=== PATIENT | female | born 1995 | race Caucasian/White ===

== ENCOUNTER → 2016-12-04 | Outpatient (CLI) | payer OTHER | LOC: MOB LAB 14:49 | PROVIDERS: ATTEND Obstetrics & Gynecology | DX: Z36 Encounter for antenatal screening of mother (principal); Z3A.35 35 weeks gestation of pregnancy | CPT/HCPCS: 87150 ==

== ENCOUNTER 2016-12-11 16:45 | Outpatient (CLI) | payer OTHER ==
[2016-12-11 18:01] VITALS: RESP 16; TEMP 98.4
[2016-12-11] MEDS ORDERED: NORMAL SALINE 10 ML SYRINGE FLUSH IVP PRN (19:00)
--- NOTE | 2016-12-11 19:52 | DI ---
HISTORY: Evaluate placenta. COMPARISON: None available. TECHNIQUE: Multiple grayscale and color Doppler sonographic images were obtained through the pelvis. FINDINGS: Examination demonstrates a single live intrauterine gestation in vertex presentation. Amniotic fluid level is normal. The placenta is posterior and grade 1 without visible defects. The cervix is long and closed measuring 3.0 cm in length. Detected Doppler heart tones measure 127 beats per minute. IMPRESSION: 1. A single live intrauterine gestation with a normal placenta. NOTE: The interpreting Radiologist was not present at the time of ultrasound interrogation.
[2016-12-11] MEDS ORDERED: RHO(D) IMMUNE GLOBULIN 1500 UNIT(300 mcg)SYRIN IM ONE (19:58)
== END 2016-12-11 19:55 | disposition home or self-care (01) ==
LOC: OBOP 16:45
PROVIDERS: ATTEND Obstetrics & Gynecology
DX: O36.0130 Maternal care for anti-D [Rh] antibodies, third trimester, not applicable or unspecified (principal); W01.0XXA Fall on same level from slipping, tripping and stumbling without subsequent striking against object, initial encounter; Z3A.36 36 weeks gestation of pregnancy
CPT/HCPCS: 59025; 76815; 81003; 86850; 86870; 86970; 96372; 99211; J2790

== ENCOUNTER 2016-12-25 18:16 | Inpatient (IN) | payer OTHER ==
[2016-12-25] MEDS ORDERED: CefOXitin Inj 2 GM in Sodium Chloride 0.9% 100 ML IV PRN (18:31)
[2016-12-25] MEDS ORDERED: Metoclopramide Inj 10 MG/2 ML VIAL IV PRN (18:31)
[2016-12-25] MEDS ORDERED: Lidocaine 1% 10 MG/ML - 20 ML VIAL SUBCUT PRN (18:31)
[2016-12-25] MEDS ORDERED: TERBUTALINE SULFATE 1 MG/1 ML SDV SUBCUT PRN (18:31)
[2016-12-25] MEDS ORDERED: BUTORPHANOL TARTRATE 2 MG/1 ML VIAL IVP PRN (18:31)
[2016-12-25] MEDS ORDERED: ONDANSETRON 4 MG/2 ML VIAL IVP PRN (18:31)
[2016-12-25] MEDS ORDERED: ePHEDrine Inj 5 MG in Normal Saline Flush 1 ML IVP PRN (18:31)
[2016-12-25] MEDS ORDERED: LIDOCAINE W/ SODIUM BICARB 0.5 ML SYR SUBD PRN (18:31)
[2016-12-25] MEDS ORDERED: Phenylephrine Inj 50 MCG in Normal Saline Flush 0.5 ML IVP PRN (18:31)
[2016-12-25] MEDS ORDERED: Nalbuphine Inj 20 MG/ML Ampule IVP PRN (18:31)
[2016-12-25] MEDS ORDERED: OXYTOCIN 10 UNIT/1 ML IM PRN (18:31)
[2016-12-25] MEDS ORDERED: Naloxone Inj 0.01 MG in Normal Saline Flush 1 ML IVP PRN (18:31)
[2016-12-25] MEDS ORDERED: diphenhydrAMINE 50 MG/1 ML VIAL IVP PRN (18:31)
[2016-12-25] MEDS ORDERED: Famotidine Inj 20 MG in Normal Saline Flush 10 ML IVP PRN ×4 (18:31)
[2016-12-25] MEDS ORDERED: METHYLERGONOVINE MALEATE 0.2 MG/1 ML VIAL IM PRN (18:31)
[2016-12-25] MEDS ORDERED: fentaNYL Inj 100 MCG/2 ML VIAL IV PRN (18:31)
[2016-12-25] MEDS ORDERED: Carboprost Inj 250 MCG/ML AMP IM PRN (18:31)
[2016-12-25] MEDS ORDERED: CITRIC ACID/SODIUM CITRATE 30 ML CUP PO PRN (18:31)
[2016-12-25] MEDS ORDERED: NALOXONE 0.4 MG/1 ML VIAL IVP PRN (18:31)
[2016-12-25] MEDS ORDERED: NORMAL SALINE 10 ML SYRINGE FLUSH IVP PRN (18:31)
[2016-12-25] MEDS ORDERED: CALCIUM CARBONATE 500 MG (TUMS) CHEWABLE TABLET PO PRN (18:31)
[2016-12-25] MEDS ORDERED: MISOPROSTOL 200 MCG TABLET RECTAL PRN (18:31)
[2016-12-25] MEDS ORDERED: Misoprostol Tab 100 MCG TAB VAGINAL PRN (18:34)
[2016-12-25] MEDS ORDERED: Oxytocin 20 Units + LR 1,000 ML IV SCH (18:45)
[2016-12-25] MEDS: Lactated Ringers-OB Dept 1,000 ML PRIMARY IV SCH (19:15)
--- NOTE | 2016-12-25 19:34 | OB.PROGRES ---
Interval History: The patient is a 21-year-old at 38-6/7 weeks who is being admitted for cervical ripening and then induction of labor with a history of a significant cervical laceration 2 after an outlet vacuum delivery last of an 8 lbs. 10 oz. child after a long second stage of labor. As the patient's delivered, the patient's cervix came down with the baby outside of the introitus. Although it was an outlet vacuum delivery, the vacuum itself was not adherent to the cervix but the baby's body drug the cervix down past the introitus and 2 lacerations occurred. With that history, the patient is being induced at 39 weeks. The patient did discuss the possibility of a primary low transverse section but the patient believes that this baby is slightly smaller than her last baby and she would like to try a vaginal delivery. Past medical history noncontributory except for low back pain for multiple years Past surgical history noncontributory The patient does not tolerate hydrocodone well. She is allergic to honeybees. No tobacco, alcohol or drugs. OB history is significant for an outlet vacuum delivery with a cervical laceration and a first-degree vaginal laceration with the baby being a male infant weighing 8 lbs. 10 oz. 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 Menarche age 10. No STI history. Objective - Cervical Exam Cervical Exam: Yesterday, cervix was 3/thick/balottable and cephalic [place]: Initially, contractions every 7 minutes but patient cannot palpate well Heart Rate Interpretation Category: Category I - Additional Details Additional Details: Lungs clear to auscultation Heart regular rate and rhythm Abdomen is soft and nontender without guarding or rebound By Jarvis's the baby was in the cephalic presentation Assessment and Plan - Assessment / Plan Additional Assessment/Plan Details: Assessment: IUP 38-6/7 weeks admitted for cervical ripening this evening and then induction of labor tomorrow. The patient has a history of cervical laceration 2 after her outlet vacuum delivery of an 8 lbs. 10 oz. child in 2013 with the cervix being drug down with the -not the outlet vacuum after a prolonged second stage of labor. The cervix actually descended to outside the patient's vaginal introitus with the delivery. The patient and I have discussed a primary section but the patient would like to try a vaginal delivery. The patient understands that there is a possibility of a significant cervical laceration that would require repair in the operating room or even possibly a hysterectomy. The patient believes that this baby currently in utero is smaller than her last baby and she is hoping that a vaginal delivery will work well. Plan: The patient's cervix will be checked tonight after the patient is admitted. The patient is just being admitted currently. The patient's contractions will be evaluated and if they are not more frequent than every 7 minutes, Cytotec 25 g will be placed vaginally. The patient will be observed closely. The patient is Rh- and did receive RhoGAM just a couple weeks ago when her dog knocked her down and the patient was zach at that time. The patient also received program at 28 weeks. red blood cells was negative at the time when the patient's dog knocked her down. One dose of RhoGam was administered at that time. Close observation for a prolonged second stage of labor
[2016-12-25 19:37] LABS: HEMATOCRIT 33.1 % (37.0-47.0); HEMOGLOBIN 11.2 g/dL (12.0-16.0); MEAN CORPUSCULAR HEMOGLOBIN 32.4 PG (27-31); MEAN CORPUSCULAR HGB CONC 33.8 g/dL (33-37); MEAN PLATELET VOLUME 9.8 FL (7.4-12.2); RDW COEFFICIENT OF VARIATION 12.8 % (11.5-14.5); RED BLOOD COUNT 3.46 10^6/uL (4.20-5.40); WHITE BLOOD COUNT 12.37 10^3/uL (4.8-10.8)
--- NOTE | 2016-12-25 19:55 | OB.PROGRES ---
Objective - Cervical Exam Cervical Exam: /ballotable [place]: After membrane sweeping, contractions every 3-5 minutes Assessment and Plan - Assessment / Plan Additional Assessment/Plan Details: Assessment/plan: Patient's cervix is changed from 3 cm yesterday to 5-6 cm today. This patient's cervix is still 50% effaced and the baby is ballotable. Currently, the plan is for the patient to contract by herself without Pitocin augmentation but Pitocin augmentation may be started if the contractions space out. Low-dose Pitocin overnight at 1-2 milliunits.
[2016-12-25] MEDS ORDERED: Zolpidem Tab 5 MG TAB PO PRN (21:00)
[2016-12-25 21:54] LABS: CANNABINOID SCREEN,URINE NEGATIVE (NEG); COCAINE SCREEN NEGATIVE (NEG); METHAMPHETAMINES SCREEN,URINE NEGATIVE (NEG); TRICYCLIC ANTIDEPRESSANT,URINE NEGATIVE (NEG); URINE SAMPLE TYPE VOIDED SPECIMEN; URINE SPECIFIC GRAVITY - MAN 1.019
[2016-12-26] MEDS: Lactated Ringers-OB Dept 1,000 ML PRIMARY IV SCH ×2 (03:11→11:08)
[2016-12-26] MEDS ORDERED: Oxytocin 20 Units + LR 1,000 ML IV SCH ×2 (06:00→15:04)
--- NOTE | 2016-12-26 08:07 | OB.PROGRES ---
Interval History: The patient rested overnight and slept some. The patient is comfortable. Minimal amount of bloody show this morning. Objective - Cervical Exam Cervical Exam: 650/-2 cephalic but ballotable. Cervix is slightly posterior [place]: Contractions every 2-5 minutes Heart Rate Interpretation Category: Category I - Labs CBC and BMP: 12/25/16 19:20 Labs - Last 24 Hours: Laboratory Results 12/25/16 12/25/16 Range/Units 19:00 19:20 WBC 12.37 H (4.8-10.8) 10^3/uL RBC 3.46 L (4.20-5.40) 10^6/uL Hgb 11.2 L (12.0-16.0) g/dL Hct 33.1 L (37.0-47.0) % MCV 95.7 (81-99) FL MCH 32.4 H (27-31) PG MCHC 33.8 (33-37) g/dL RDW Std Deviation 42.6 (39-50) fL RDW Coeff of Vlad 12.8 (11.5-14.5) % Plt Count 228 (140-350) 10*3/uL MPV 9.8 (7.4-12.2) FL Ur Collection Type Voided specimen U Specif Grav (Refrac) 1.019 Urine Opiates Screen Negative (NEG) Ur Buprenorphine Negative (NEG) Ur Oxycodone Screen Negative (NEG) Urine Methadone Screen Negative (NEG) Ur Propoxyphene Screen Negative (NEG) Ur Barbiturates Screen Negative (NEG) U Tricyclic Antidepress Negative (NEG) Phencyclidine Screen Negative (NEG) Amphetamines Screen Negative (NEG) U Methamphetamines Scrn Negative (NEG) U Benzodiazepines Scrn Negative (NEG) Urine Cocaine Screen Negative (NEG) U Cannabinoids Screen Negative (NEG) Blood Type A NEGATIVE Antibody Screen Positive Antibody Identification Anti-D - Vital Signs Last Taken Vital Signs: Vital Signs - Last Taken Temperature 98.1 F 12/26/16 06:45 Pulse Rate 101 H 12/26/16 07:00 Respiratory Rate 16 12/26/16 07:00 Blood Pressure 98/64 12/26/16 06:45 Pulse Ox 98 12/26/16 07:00 - Additional Details Additional Details: Pitocin at 3 milliunits currently Assessment and Plan - Assessment / Plan Additional Assessment/Plan Details: Assessment: IUP 39 weeks with a history of an outlet vacuum delivery with cervical laceration 2 as well as a first-degree laceration and labial lacerations. The patient is Rh- and has received RhoGAM this The patient is very petite but has a proven pelvis to 8 lbs. 10 oz. although the cervix descended with the delivery of the baby last time and there was a prolonged second stage of labor. Currently, the baby's head is ballotable and not in the patient's pelvis. Last night the patient was admitted for cervical ripening but was found to be 5 cm dilated. The membranes were swept gently and the patient was zach regularly and I did not administer Pitocin or Cytotec secondary to the head being ballotable in the hopes that the patient's contractions would bring down the baby's head. Pitocin was started this morning when I called in 0535 hrs. and requested Pitocin be started. Plan: I would like to AROM the patient. I have talked to the operating room staff and spoken with the patient and the labor and delivery nurses about the possible risk of cord prolapse with AROM. Therefore I would like the operating room staff and anesthesia readily available when I AROM the patient. The patient has expressed understanding and currently has informed me that it is okay for AROM. This will occur when everyone is ready. We have also discussed that sometimes the baby's head does not descend into the pelvis secondary to the size of the baby or secondary to a tethered nuchal cord. Again, the patient has opted for a trial of labor versus a section with a history of the descent of the patient's cervix outside the patient's introitus and a history of cervical lacerations. Hopefully, the baby's head will descend into the pelvis once AROM has occurred.
--- NOTE | 2016-12-26 09:43 | OB.PROGRES ---
Interval History: Recent significant other is here and she is ready for AROM. Patient is comfortable currently. Objective - Cervical Exam Cervical Exam: /-3 with AROM-clear fluid-no evidence of prolapsed cord with AROM. Patient and baby tolerated AROM well. Pitocin was decreased from 5 to 3 milliunits after AROM. [place]: Every 3 minutes, Heart Rate Interpretation Category: Category I - Labs CBC and BMP: 12/25/16 19:20 Labs - Last 24 Hours: Laboratory Results 12/25/16 12/25/16 Range/Units 19:00 19:20 WBC 12.37 H (4.8-10.8) 10^3/uL RBC 3.46 L (4.20-5.40) 10^6/uL Hgb 11.2 L (12.0-16.0) g/dL Hct 33.1 L (37.0-47.0) % MCV 95.7 (81-99) FL MCH 32.4 H (27-31) PG MCHC 33.8 (33-37) g/dL RDW Std Deviation 42.6 (39-50) fL RDW Coeff of Vlad 12.8 (11.5-14.5) % Plt Count 228 (140-350) 10*3/uL MPV 9.8 (7.4-12.2) FL Ur Collection Type Voided specimen U Specif Grav (Refrac) 1.019 Urine Opiates Screen Negative (NEG) Ur Buprenorphine Negative (NEG) Ur Oxycodone Screen Negative (NEG) Urine Methadone Screen Negative (NEG) Ur Propoxyphene Screen Negative (NEG) Ur Barbiturates Screen Negative (NEG) U Tricyclic Antidepress Negative (NEG) Phencyclidine Screen Negative (NEG) Amphetamines Screen Negative (NEG) U Methamphetamines Scrn Negative (NEG) U Benzodiazepines Scrn Negative (NEG) Urine Cocaine Screen Negative (NEG) U Cannabinoids Screen Negative (NEG) Blood Type A NEGATIVE Antibody Screen Positive Antibody Identification Anti-D - Vital Signs Last Taken Vital Signs: Vital Signs - Last Taken Temperature 98.2 F 12/26/16 08:30 Pulse Rate 85 12/26/16 08:45 Respiratory Rate 18 12/26/16 08:45 Blood Pressure 107/72 12/26/16 08:45 Pulse Ox 100 12/26/16 08:45 Assessment and Plan - Assessment / Plan Additional Assessment/Plan Details: Assessment: IUP 39 weeks with AROM with clear fluid The patient and the baby tolerated well. Plan: Close observation Continue Pitocin
[2016-12-26] MEDS ORDERED: LIDOCAINE MPF 2% - 5 ML (20 MG/1 ML) ONE ×2 (11:10→13:46)
[2016-12-26] MEDS ORDERED: PHENYLEPHRINE 10,000 MCG/1 ML VIAL ONE (11:17)
--- NOTE | 2016-12-26 11:52 | CRNA.PROCE ---
Central Neuraxis Block [facility] - - Safety Measures: Site Verified - - Type of Block: Epidural (Requested epidural for labor. 8 cm. Ruptured membranes. On pitocin. FHT reassuring per OB RN's. Lactated Ringers Bolus running. Platelets reported at) Reason for Block: Analgesia Moniters Used During Block: SPO2, NIBP Skin Prep Used: Betadine (Times 3) Draped: Yes Skin Infiltration - Enter Amount Used in Comment Field: 1% Xylocaine (mL): Yes ( 1) Spinal Needle Used: 18 Hustead 80 mm (ROBBIE with saline. Epidural space times 1. Test dose of 4 ml 1.5% Lido with epi 1:200k--Negatve for SAB/IV.) Local Anesthetic - Enter Amount Used in Comment Field: 1.5 % Xylocaine with Epinephrine 1:200,000 (mL): Yes (4 ml) Number of Centimeters Catheter Threaded: 3.5 Bioclusive Dressing Applied: Yes (With skin prep underneath.)
[2016-12-26] MEDS ORDERED: Naloxone Inj 0.01 MG in Normal Saline Flush 1 ML IVP PRN (11:58)
[2016-12-26] MEDS ORDERED: Nalbuphine Inj 20 MG/ML Ampule IVP PRN ×2 (11:58→15:04)
[2016-12-26] MEDS ORDERED: Phenylephrine Inj 50 MCG in Normal Saline Flush 0.5 ML IVP PRN (11:58)
[2016-12-26] MEDS ORDERED: diphenhydrAMINE 50 MG/1 ML VIAL IVP PRN ×2 (11:58→15:04)
[2016-12-26] MEDS ORDERED: NALOXONE 0.4 MG/1 ML VIAL IVP PRN (11:58)
[2016-12-26] MEDS ORDERED: BUTORPHANOL TARTRATE 2 MG/1 ML VIAL IVP PRN (11:58)
[2016-12-26] MEDS ORDERED: ePHEDrine Inj 5 MG in Normal Saline Flush 1 ML IVP PRN (11:58)
--- NOTE | 2016-12-26 12:04 | CRNA.PROGR ---
Anesthesia Note Anesthesia Progress Note: Placed epidural. Test dose of 4.0 ml of 1.5% lido with epi 1:200k at 1124. Added 5 ml of 2% MPF lido at 1140. Now reported to be "rim/lip" only. [address] on infusion. Laboratory Results 12/25/16 12/25/16 Range/Units 19:00 19:20 WBC 12.37 H (4.8-10.8) 10^3/uL RBC 3.46 L (4.20-5.40) 10^6/uL Hgb 11.2 L (12.0-16.0) g/dL Hct 33.1 L (37.0-47.0) % MCV 95.7 (81-99) FL MCH 32.4 H (27-31) PG MCHC 33.8 (33-37) g/dL RDW Std Deviation 42.6 (39-50) fL RDW Coeff of Vlad 12.8 (11.5-14.5) % Plt Count 228 (140-350) 10*3/uL MPV 9.8 (7.4-12.2) FL Ur Collection Type Voided specimen U Specif Grav (Refrac) 1.019 Urine Opiates Screen Negative (NEG) Ur Buprenorphine Negative (NEG) Ur Oxycodone Screen Negative (NEG) Urine Methadone Screen Negative (NEG) Ur Propoxyphene Screen Negative (NEG) Ur Barbiturates Screen Negative (NEG) U Tricyclic Antidepress Negative (NEG) Phencyclidine Screen Negative (NEG) Amphetamines Screen Negative (NEG) U Methamphetamines Scrn Negative (NEG) U Benzodiazepines Scrn Negative (NEG) Urine Cocaine Screen Negative (NEG) U Cannabinoids Screen Negative (NEG) Blood Type A NEGATIVE Antibody Screen Positive Antibody Identification Anti-D 5 ml of 2% Lido MPF vis epidural at 1235. Baby delivered at 1312. Apgars 9 and 10 apgars per OB BEENA Matthew. Yumiko Perkins MS, MOP MAKER
--- NOTE | 2016-12-26 12:18 | OB.PROGRES ---
Interval History: The patient has received an epidural and is much more comfortable now. Objective - Cervical Exam Cervical Exam: Per the nurse's exam: 9/C/0 cephalic [place]: Pitocin on 2 milliunits currently. Contractions every 3 minutes or so Heart Rate Interpretation Category: Category II (Variable decelerations or early decelerations) - Labs CBC and BMP: 12/25/16 19:20 Labs - Last 24 Hours: Laboratory Results 12/25/16 12/25/16 Range/Units 19:00 19:20 WBC 12.37 H (4.8-10.8) 10^3/uL RBC 3.46 L (4.20-5.40) 10^6/uL Hgb 11.2 L (12.0-16.0) g/dL Hct 33.1 L (37.0-47.0) % MCV 95.7 (81-99) FL MCH 32.4 H (27-31) PG MCHC 33.8 (33-37) g/dL RDW Std Deviation 42.6 (39-50) fL RDW Coeff of Vlad 12.8 (11.5-14.5) % Plt Count 228 (140-350) 10*3/uL MPV 9.8 (7.4-12.2) FL Ur Collection Type Voided specimen U Specif Grav (Refrac) 1.019 Urine Opiates Screen Negative (NEG) Ur Buprenorphine Negative (NEG) Ur Oxycodone Screen Negative (NEG) Urine Methadone Screen Negative (NEG) Ur Propoxyphene Screen Negative (NEG) Ur Barbiturates Screen Negative (NEG) U Tricyclic Antidepress Negative (NEG) Phencyclidine Screen Negative (NEG) Amphetamines Screen Negative (NEG) U Methamphetamines Scrn Negative (NEG) U Benzodiazepines Scrn Negative (NEG) Urine Cocaine Screen Negative (NEG) U Cannabinoids Screen Negative (NEG) Blood Type A NEGATIVE Antibody Screen Positive Antibody Identification Anti-D - Vital Signs Last Taken Vital Signs: Vital Signs - Last Taken Temperature 98.0 F 12/26/16 10:00 Pulse Rate 99 12/26/16 10:45 Respiratory Rate 18 12/26/16 10:45 Blood Pressure 106/64 12/26/16 10:45 Pulse Ox 98 12/26/16 11:00 Assessment and Plan - Assessment / Plan Additional Assessment/Plan Details: Assessment: IUP 39 weeks with Pitocin augmentation There has been cervical change advisor the past couple hours and AROM has occurred with clear fluid. There has been dissent of the head to 0 station per the nurse's exam Patient has received an epidural and is comfortable currently [place]: Continue to observe closely for cervical change and then second stage of labor.
--- NOTE | 2016-12-26 12:36 | OB.PROGRES ---
Interval History: The is comfortable with her epidural. Objective - Cervical Exam Cervical Exam: c/c/+1-2 Heart Rate Interpretation Category: Category II (Variable or early decelerations Pitocin was turned off by the nurse secondary to the decelerations.) - Labs CBC and BMP: 12/25/16 19:20 Labs - Last 24 Hours: Laboratory Results 12/25/16 12/25/16 Range/Units 19:00 19:20 WBC 12.37 H (4.8-10.8) 10^3/uL RBC 3.46 L (4.20-5.40) 10^6/uL Hgb 11.2 L (12.0-16.0) g/dL Hct 33.1 L (37.0-47.0) % MCV 95.7 (81-99) FL MCH 32.4 H (27-31) PG MCHC 33.8 (33-37) g/dL RDW Std Deviation 42.6 (39-50) fL RDW Coeff of Vlad 12.8 (11.5-14.5) % Plt Count 228 (140-350) 10*3/uL MPV 9.8 (7.4-12.2) FL Ur Collection Type Voided specimen U Specif Grav (Refrac) 1.019 Urine Opiates Screen Negative (NEG) Ur Buprenorphine Negative (NEG) Ur Oxycodone Screen Negative (NEG) Urine Methadone Screen Negative (NEG) Ur Propoxyphene Screen Negative (NEG) Ur Barbiturates Screen Negative (NEG) U Tricyclic Antidepress Negative (NEG) Phencyclidine Screen Negative (NEG) Amphetamines Screen Negative (NEG) U Methamphetamines Scrn Negative (NEG) U Benzodiazepines Scrn Negative (NEG) Urine Cocaine Screen Negative (NEG) U Cannabinoids Screen Negative (NEG) Blood Type A NEGATIVE Antibody Screen Positive Antibody Identification Anti-D - Vital Signs Last Taken Vital Signs: Vital Signs - Last Taken Temperature 98.0 F 12/26/16 10:00 Pulse Rate 97 12/26/16 11:15 Respiratory Rate 16 12/26/16 11:15 Blood Pressure 104/71 12/26/16 11:15 Pulse Ox 100 12/26/16 11:15 Assessment and Plan - Assessment / Plan Additional Assessment/Plan Details: IUP 39 weeks now complete and at the beginning of the second stage of labor. Plan: Secondary to the decelerations, I would like to do a trial of pushes to determine if the patient can push the baby down and deliver. Close observation.
--- NOTE | 2016-12-26 13:52 | OB.DEL.SUM ---
Delivery Note Delivery Summary: The patient was complete at 1230 hrs. The patient started pushing about 15-20 minutes later. At 1312 hrs. the patient delivered the baby with the head in the LOP presentation. The head was delivered and there was a nuchal cord 1 which was loose and reduced on the perineum. The anterior shoulder had previously delivered and then the posterior shoulder was delivered and the baby was delivered and the mouth and nose were bulb suctioned. Delayed cord clamping for about 40 seconds was allowed for. Mouth and nose were bulb suctioned again. Cord was clamped and cut. Baby was handed off to the waiting nurse and respiratory therapist in attendance. A section of cord was obtained for cord gases and then cord blood was obtained. The placenta was then gently retracted on and the placenta delivered. The placenta was examined and the placenta appeared intact. Pitocin infusion was started. I examined the patient's perineum and it was intact. The patient's cervix was at the introitus. From 7:00 to 5:00 I can visualize the cervix and it was intact. At 6:00 the cervix was examined after a posterior weighted speculum was placed and there was a laceration that extended several centimeters. I could not visualize this well and therefore the patient would be brought to the operating room so that I could repair the cervical laceration. The patient had a cervical laceration with her first vaginal delivery also. The patient was not bleeding briskly but there were blood clots forming at the point where the cervical laceration occurred. A lap sponge was left in the patient's vagina with the majority of the lap sponge outside of her vagina. EBL 350 mL Sponge lap and needle counts were correct 2. Findings were a male with Apgars 9 and 10 with a weight of 7 lbs. 12 oz. A blood gas showed a pH of 7.42, PCO2 of 29, HCO3 of 19, base excess -6 Please see my operative note for further details on the cervical laceration repair.
--- NOTE | 2016-12-26 14:52 | OB.OP.NOTE ---
Operative Report Surgeon: Dionicio Charging Manipulator: Luis Eduardo Ray MD Anesthesia Type: Regional (Epidural) Anesthesia Provider: Sariah Perkins CRNA Surgery Date: 12/26/16 Preoperative Diagnosis: Status post spontaneous vaginal delivery with cervical laceration posteriorly Postoperative Diagnosis: Status post spontaneous vaginal delivery with cervical laceration at 3:00 and 9:00 once cervix visualized completely and operating room Procedure: Repair of cervical laceration at 3:00 and 9:00 on the patient's cervix with 3-0 Vicryl suture Estimated Blood Loss (mL): 50 Fluids: 300 mL LR. 650 mL of urine clear Complications: None apparent Findings at Surgery: Cervical laceration at 3:00 and 9:00 as looking at the face of o'clock on the cervix Indications for the Procedure: The patient is a 21-year-old now with a history of an outlet vacuum delivery with her first and 2 cervical lacerations as the baby was delivered the cervix was drawn down past the introitus and there was a buttonhole cervical laceration and another cervical laceration that was repaired. The patient was given the option of a trial of labor versus a primary for this . The patient was 39 weeks gestation today and decided to attempt a trial of labor and a vaginal delivery. The patient actually progressed well and had a 42 minute second stage of labor compared to her 3 hour second stage of labor with her first . The patient did have an epidural with this delivery as well as last delivery. There were no perineal lacerations with this delivery but I could not visualize the posterior cervix well in the delivery room and there was still some bleeding and clotting occurring. Therefore the patient was brought to the operating room for exam under anesthesia and repair of cervical lacerations. Description of Procedure: The patient was brought to the operating room after I discussed with the patient and her significant other my plan to repair the cervical lacerations. The patient expressed understanding and had signed a consent form before for vaginal delivery in all other associated procedures. The patient was brought to the operating room. The patient was placed in the dorsal lithotomy position in yellowfin stirrups. The epidural that was used during labor was used for anesthesia. The patient was prepped and draped sterilely. 4 the patient was prepped and draped sterilely, the lap sponge that I had placed vaginally in the delivery room was removed and there was significant old blood and some fresh clot. I am to the bladder with a straight catheter of 650 mL of clear yellow urine. There were no perineal lacerations noted. I then placed a weighted speculum posteriorly and a Lindsay retractor was placed anteriorly and the cervix was visualized and grasped with ring forceps. I then noticed that there were 2 cervical lacerations that were fairly hemostatic at 3:00 and 9:00. I used 3-0 Vicryl suture on an SH needle to close the cervical laceration at 3: 00 in [id number] sutures. I used 3-0 Vicryl suture on an SH needle to close the cervical laceration and 9: 00 with 1 [id number] suture. I then followed the cervix around circumferentially 360 and there was good hemostasis in all areas of the cervix. A rectal exam was completed to ensure that the sphincter was intact and the sphincter appeared intact and there were no other lacerations noted. No buttonhole lacerations noted. The uterus was then expressed of all clot and debris. Sponge lap and needle counts were correct 2. The patient was taken to her room for recovery. 2 g of Ancef were administered at the beginning of the procedure IV. Plan: The patient and her baby will recover in the room.
[2016-12-26] MEDS ORDERED: BENZOCAINE/MENTHOL SPRAY 56 GM BOTTLE TOPICAL PRN (15:04)
[2016-12-26] MEDS ORDERED: DIPH,PERTUSS,TET(ADACEL) VAC/PF 0.5 ML (Tdap) IM SCH (15:04)
[2016-12-26] MEDS ORDERED: diphenhydrAMINE 25 MG CAPSULE PO PRN (15:04)
[2016-12-26] MEDS ORDERED: GLYCERIN/WITCH HAZEL 1 BOX TOPICAL PRN (15:04)
[2016-12-26] MEDS ORDERED: LANOLIN HPA 40 GM TUBE TOPICAL PRN (15:04)
[2016-12-26] MEDS ORDERED: ONDANSETRON 4 MG/2 ML VIAL IVP PRN (15:04)
[2016-12-26] MEDS ORDERED: Ondansetron ODT Tab 4 MG TAB PO PRN (15:04)
[2016-12-26] MEDS ORDERED: CALCIUM CARBONATE 500 MG (TUMS) CHEWABLE TABLET PO PRN (15:04)
[2016-12-26] MEDS ORDERED: Methylergonovine Tab 0.2 MG TAB PO PRN (15:04)
[2016-12-26] MEDS ORDERED: MISOPROSTOL 200 MCG TABLET RECTAL ONE (15:04)
[2016-12-26] MEDS ORDERED: ACETAMINOPHEN 325 MG TABLET PO PRN (15:04)
[2016-12-26] MEDS ORDERED: METHYLERGONOVINE MALEATE 0.2 MG/1 ML VIAL IM PRN (15:04)
[2016-12-26] MEDS ORDERED: Carboprost Inj 250 MCG/ML AMP IM PRN (15:04)
[2016-12-26] MEDS ORDERED: OXYTOCIN 10 UNIT/1 ML IM ONE (15:04)
[2016-12-26] MEDS ORDERED: NORMAL SALINE 10 ML SYRINGE FLUSH IVP PRN (15:04)
[2016-12-26] MEDS: IBUPROFEN 800 MG TABLET PO PRN (15:49)
[2016-12-26] MEDS ORDERED: RHO(D) IMMUNE GLOBULIN 1500 UNIT(300 mcg)SYRIN IM ONE (16:55)
[2016-12-26] MEDS: DOCUSATE 100 MG CAPSULE PO SCH (21:59)
[2016-12-26 22:06] VITALS: TEMP 98
[2016-12-27] MEDS: IBUPROFEN 800 MG TABLET PO PRN (05:12)
[2016-12-27 05:21] LABS: HEMATOCRIT 35.7 % (37.0-47.0); HEMOGLOBIN 11.9 g/dL (12.0-16.0); MEAN CORPUSCULAR HEMOGLOBIN 32.5 PG (27-31); MEAN CORPUSCULAR HGB CONC 33.3 g/dL (33-37); MEAN PLATELET VOLUME 10.1 FL (7.4-12.2); RDW COEFFICIENT OF VARIATION 13.1 % (11.5-14.5); RED BLOOD COUNT 3.66 10^6/uL (4.20-5.40); WHITE BLOOD COUNT 11.9 10^3/uL (4.8-10.8)
[2016-12-27 05:34] VITALS: RESP 18
[2016-12-27] MEDS ORDERED: Prenatal Multivitamin Tab 1 TAB TAB PO SCH (09:00)
--- NOTE | 2016-12-27 09:30 | OB.PROGRES ---
Subjective Post Day: 1 Pain Management: PO [place] Catheter: No Flatus: Yes Diet: Regular Feeding Method: / Bottle Ambulating: Yes Concerns / Additional Information: The patient states she is doing well. Not bleeding much. The patient would like to go home. She is breast and bottlefeeding. Objective - General General Appearance: POSITIVE: No Acute Distress, Cooperative - Cardiovacular Cardiovascular Exam: POSITIVE: RRR Edema: No Pedal Edema Extremities: Negative Sherie's - Bilaterally - Respiratory Respiratory Exam: POSITIVE: Clear to Auscultation - Bilaterally - Fundus/Lochia/Perineum Uterus Consistency: Firm Uterus Position: POSITIVE: Below Umbilicus Assesstment / Plan Assessment / Plan: Assessment: day #1 status post spontaneous vaginal delivery of 7 lbs. 12 oz. male infant with Apgars 9 and 10. The patient had some bleeding and the cervix could not be visualized and the patient was brought back to the operating room and there were small cervical lacerations at 3 and 9:00 that were repaired with better lighting in the operating room. The epidural was still used for anesthesia. This morning, the patient is doing well and her H&H is normal and her platelets are normal. The patient desires to go home. Plan: Discharge home today with the usual instructions and precautions Ibuprofen 800 mg 1 by mouth 3 times a day with food or milk 5 days then 3 times a day as needed with food or milk Colace 100 mg 1 by mouth daily to twice a day when necessary constipation The patient should continue a multivitamin daily. This may be a vitamin or just a regular multivitamin. Serena Complete vitamins are fine. The patient should have a follow-up in 6 weeks The patient has a small umbilical hernia and precautions were discussed with the patient by myself that if she were to have significant pain that does not resolve, she needs to be seen immediately. The patient and I will assess and discuss her umbilical hernia at the 6 week visit and refer the patient to Gen. surgery for evaluation for repair of the umbilical hernia. The patient should know that she can contact the child development consultant for help with breast-feeding
--- NOTE | 2016-12-27 09:43 | DCSUMMARY ---
Hospitalization Summary Admit Date: 12/25/16 Discharge Date: 12/27/16 Primary Diagnosis:: IUP 38-6/7 weeks on admit-delivery at 39 weeks gestation Secondary Diagnosis:: History of cervical laceration with outlet vacuum delivery Primary Surgery and Date: Spontaneous vaginal delivery. Repair of cervical laceration at 3:00 and 9:00 with 3-0 Vicryl suture Delivery Type: Vaginal Hospital Course: The patient was admitted on 12/25/2016. The patient was to have cervical ripening but her cervix was found to be 5 cm dilated which was a change from the previous day and the patient was zach intermittently. The patient's membranes were swept and she increased her frequency of contractions but then overnight slowed the contractions. The morning of 12/26/2016, Pitocin augmentation was started. The patient got to complete at 1230 hrs. on 12/26/2016. The patient had a spontaneous vaginal delivery at 1312 hrs. on the same date. Findings were a male infant with Apgars 9 and 10 with a weight of 7 lbs. 12 oz. The patient continued to have some bleeding he even though she had no perineal lacerations. The patient's posterior cervix could not be fully visualized and the patient was brought to the operating room for better visualization with better lighting and positioning. There was a cervical small cervical laceration at 3:00 and 9:00. These were repaired with 3-0 Vicryl suture. The complete cervix was visualized and was hemostatic. On day #1 the patient had minimal bleeding and was doing well and wanted to go home. The patient was discharged on day #1 with precautions. / Postop Complications: As mentioned, there was a small cervical laceration at 3 and 9:00 which was repaired. Complications: Nonspecific. Please see the newborns physician's notes an nurse's notes. Exam - Vitals Vital Signs: Vital Signs Temperature 98.0 F Temperature Source Axillary Pulse Rate [Pulse Oximeter] 90 Pulse Rate 83 Respiratory Rate 18 Blood Pressure [Right Arm] 102/72 Blood Pressure 109/88 Pulse Ox 99 Oxygen Delivery Method Room Air Height 5 ft Weight 144 lb 9.6 oz
[2016-12-27] MEDS: DOCUSATE 100 MG CAPSULE PO SCH (09:58)
[2016-12-28] MEDS ORDERED: Lactated Ringers-OB Dept 1,000 ML ONE (17:50)
== END 2016-12-27 15:30 | disposition home or self-care (01) | DRG 775 ==
LOC: OBIP 18:34 → OBOR 12-26 14:10 → OBIP 12-26 15:00
PROVIDERS: ADMIT Obstetrics & Gynecology; ATTEND Obstetrics & Gynecology
PROC: 3E033VJ Introduction of Other Hormone into Peripheral Vein, Percutaneous Approach (ICD-10-PCS; principal; 2016-12-25)
PROC: 10E0XZZ Delivery of Products of Conception, External Approach (ICD-10-PCS; 2016-12-26)
PROC: 0UQC7ZZ Repair Cervix, Via Natural or Artificial Opening (ICD-10-PCS; 2016-12-26)
DX: O71.3 Obstetric laceration of cervix (principal); Z37.0 Single live birth; Z3A.39 39 weeks gestation of pregnancy
CPT/HCPCS: 36415; 80305; 81003; 85027; 86850; 86870; 86900; 86901; 86970; J2001; J2210; J2370; J2790; J3010; J7120

== ENCOUNTER 2018-12-23 16:39 | Inpatient (IN) ==
[2018-12-23] MEDS ORDERED: Nalbuphine Inj 20 MG/ML Ampule IVP PRN (18:54)
[2018-12-23] MEDS ORDERED: diphenhydrAMINE 50 MG/1 ML VIAL IVP PRN (18:54)
[2018-12-23] MEDS ORDERED: Lidocaine 1% 10 MG/ML - 20 ML VIAL SUBCUT PRN (18:54)
[2018-12-23] MEDS ORDERED: FAMOTIDINE 20 MG/2 ML VIAL IVP PRN ×2 (18:54)
[2018-12-23] MEDS ORDERED: ePHEDrine Inj 50 MG/ML AMP IVP PRN (18:54)
[2018-12-23] MEDS ORDERED: OXYTOCIN 10 UNIT/1 ML IM PRN (18:54)
[2018-12-23] MEDS ORDERED: Naloxone Inj 0.01 MG in Sodium Chloride 0.9% vial 1 ML IVP PRN (18:54)
[2018-12-23] MEDS ORDERED: Phenylephrine Inj 50 MCG in Sodium Chloride 0.9% vial 0.5 ML IVP PRN (18:54)
[2018-12-23] MEDS ORDERED: MISOPROSTOL 200 MCG TABLET RECTAL PRN (18:54)
[2018-12-23] MEDS ORDERED: BUTORPHANOL TARTRATE 2 MG/1 ML VIAL IVP PRN (18:54)
[2018-12-23] MEDS ORDERED: TERBUTALINE SULFATE 1 MG/1 ML SDV SUBCUT PRN (18:54)
[2018-12-23] MEDS ORDERED: fentaNYL Inj 100 MCG/2 ML VIAL IV PRN (18:54)
[2018-12-23] MEDS ORDERED: LIDOCAINE W/ SODIUM BICARB 0.5 ML SYR SUBD PRN (18:54)
[2018-12-23] MEDS ORDERED: CALCIUM CARBONATE 500 MG (TUMS) CHEWABLE TABLET PO PRN (18:54)
[2018-12-23] MEDS ORDERED: Carboprost Inj 250 MCG/ML AMP IM PRN (18:54)
[2018-12-23] MEDS ORDERED: NALOXONE 0.4 MG/1 ML VIAL IVP PRN (18:54)
[2018-12-23] MEDS ORDERED: Metoclopramide Inj 10 MG/2 ML VIAL IV PRN (18:54)
[2018-12-23] MEDS ORDERED: CITRIC ACID/SODIUM CITRATE 30 ML CUP PO PRN (18:54)
[2018-12-23] MEDS ORDERED: ONDANSETRON 4 MG/2 ML VIAL IVP PRN (18:54)
[2018-12-23] MEDS ORDERED: CefOXitin Inj 2 GM in Sodium Chloride 0.9% 100 ML IV PRN (18:54)
[2018-12-23] MEDS ORDERED: METHYLERGONOVINE MALEATE 0.2 MG/1 ML VIAL IM PRN (18:54)
[2018-12-23] MEDS ORDERED: LIDOCAINE HCL 2 % 10 ML JELLY URO-JECT TOPICAL PRN (18:54)
[2018-12-23] MEDS ORDERED: Oxytocin 20 Units + LR 20 UNIT/1,000 ML BAG IV SCH (19:00)
--- NOTE | 2018-12-23 19:22 | OB.PROGRES ---
Intake - - Reason for Visit/Chief Complaint: Decreased Movement Admitted From: Home - Estimated Due Date: 12/28/18 Gestational Age in Weeks and Days: 39 Weeks and 2 Days : 3 Para: 2 Term Births: 2 Number of Abortions (Spont./Elective): 0 Living Children: 2 - Labs Blood Type and Rh: A- Group B Strep: Negative Hepatitis B Surface Antigen: Absent HIV: Negative Rubella Status: Immune VDRL/RPR: Absent Maternal - Vital Signs Last Taken Vital Signs: Vital Signs - Last Taken Temperature 98.5 F 12/23/18 16:50 Pulse Rate 90 12/23/18 16:50 Respiratory Rate 18 12/23/18 16:50 Blood Pressure 121/80 12/23/18 16:50 Pulse Ox 98 12/23/18 16:50 - Cervical Exam Cervical Dilation (cm): 6 Cervical Effacement Percentage: 60 Station: -1 Exam Performed By: Divya - Vaginal Discharge Vaginal Bleeding Amount: None Vaginal Discharge Amount: None Monitoring - Uterine Activity Uterine Contraction Monitor Mode: External Contraction Frequency(minutes): 3-5 Contraction Duration (seconds): 50-80 Uterine Contraction Pattern: Regular Uterine Tone Measurement Phase: Soft Uterine Contraction Intensity: Moderate Multani Score - Multani Score Cervical Dilation: 5 cm or more Cervical Effacement: 60-70 Station: -1 to 0 Cervical Consistency: Soft Cervical Position: Midposition Multani Score Total: 10 Results - Labs CBC and BMP: 12/23/18 19:15 - Bedside Testing Bedside Urine Ketone: Negative Bedside Urine Leukocytes Esterase: Negative Bedside Urine Nitrite: Negative Bedside Urine Occult Blood: Negative Bedside Urine Protein: Trace Bedside Specific [place]: 1.030 Assessment and Plan - Assessment / Plan Additional Assessment/Plan Details: The patient is a 23-year-old at 39-2/7 weeks by a 20 week survey ultrasound who presented to labor and delivery after seeing me in the clinic to discuss a primary section secondary to her history of having cervical laceration with her first delivery and then a mild cervical laceration with her second delivery. The patient now believes that it is possible that this baby is as big as her first one and she was concerned that he may have a significant cervical laceration again. The patient is also concerned because her second baby did have group B strep sepsis. The patient decided that she would like a section after we discussed the risks, benefits, alternatives and indications. The patient was asked to go to labor and delivery because she commented that perhaps the baby had decreased movement. In labor and delivery, the patient was noted to be having contractions. The nurse did check her and her cervix was 6 cm dilated. 2 days ago her cervix was 4 cm dilated. When the nurse and the patient spoke about the contractions, the patient stated that she could fill those contractions but that they were not extremely painful. Thinking about throughout the day, the patient thought that she was having [place] contractions. Past medical history low back pain for multiple years. Past surgical history noncontributory The patient is allergic to bees. She also does not tolerate hydrocodone well No tobacco, no alcohol, no drugs. OB history is significant for an outlet vacuum delivery with her firstDelivery of a baby weighing 8 lbs. 10 oz. and then having a spontaneous vaginal delivery with her second delivery. Both deliveries resulted in small cervical lacerations that were repaired in the operating room. Additionally, her second baby re-presented to the hospital with group B strep infection and was transported to [place], [place] for higher level of care for group B strep infection. The mother says that the baby is doing well. The patient herself tested negative for GBS. 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 Menarche age 10. No STI history. Family history noncontributory Objective: Please see the vital signs Abdomen is gravid and nontender without guarding or rebound. heart rate monitors category 1 heart rate tracing [place] shows contractions every 1-3 minutes Assessment: IUP 39-2/7 weeks with history of first vaginal delivery with 8 lbs. 10 oz. child with a cervical laceration. Her second delivery the baby was smaller and she had a small cervical laceration that was hemostatic by the time I got to the operating room but I could see where the small laceration was and this area was sutured. Her second baby on day #1 did develop group B strep sepsis even though her group B strep culture was negative. The baby was in the hospital for a couple weeks and was very sick for a while. The toddler is doing well now. The patient saw me earlier today stating that she was concerned about having a vaginal delivery and another cervical laceration and stated that she wanted a primary section since she is not sure if this baby is bigger or smaller than her first baby. Consent forms were signed previously. Now, the patient has been found to be zach when she just presented for a nonstress test prior to the section tomorrow morning. The nurse checked her cervix and she was zach and the patient's cervix was 6 cm compared to 4 cm yesterday. With the regular contractions and the advanced cervical dilation, the patient will not go home. She will be admitted. Plan: The patient is currently having an IV placed and then will have GBS prophylaxis with penicillin. The patient has spoken with the nurse, while I was doing a , and she is not sure if she would like a or a trial labor. I just spoke with the patient and gave her several options. Since the patient is zach every 2-3 minutes but the patient states that the contractions are not painful, I offered the patient a section now. Another option was to allow the patient to continue to be monitored and we would reassess in the morning if she was not delivered. (The patient is receiving her first dose of IV penicillin for GBS prophylaxis. I informed the patient that she will receive IV penicillin GBS prophylaxis every 4 hours. The patient expressed understanding with that.) Another option is for the patient to labor and to have a vaginal delivery. I did explain to the patient that it do not want to check her currently until she has at least 2 doses of IV penicillin on board for GBS prophylaxis. The patient currently would like to continue as she is and determine what her cervix is in the morning unless her cervix continues to dilate overnight and she has SROM and a potential vaginal delivery. The patient stated that if her cervi x was not changing significantly by the morning, she may want a section then as we discussed earlier today and as I mentioned in the note above. The patient does understand that she is receiving GBS prophylaxis currently. We will continue to observe the patient closely.
[2018-12-23 19:26] LABS: Hematocrit [HCT] 32.4 % (37.0-47.0); Hemoglobin [HGB] 10.9 g/dL (12.0-16.0); MEAN CORPUSCULAR HEMOGLOBIN 32.8 PG (27-31); MEAN CORPUSCULAR HGB CONC 33.6 g/dL (33-37); MEAN CORPUSCULAR VOLUME 97.6 FL (81-99); MEAN PLATELET VOLUME 10.9 FL (7.4-12.2); RED BLOOD COUNT 3.32 10^6/uL (4.20-5.40)
[2018-12-23] MEDS: Lactated Ringers-OB Dept 1,000 ML PRIMARY IV SCH (19:27)
[2018-12-23 19:42] LABS: AMPHETAMINE SCREEN NEGATIVE (NEG); CANNABINOID SCREEN,URINE NEGATIVE (NEG); COCAINE SCREEN NEGATIVE (NEG); METHADONE URINE SCREEN NEGATIVE (NEG); METHAMPHETAMINES SCREEN,URINE NEGATIVE (NEG); OPIATE SCREEN,URINE NEGATIVE (NEG); URINE SAMPLE TYPE CLEAN CATCH URINE
[2018-12-24] MEDS ORDERED: Oxytocin 20 Units + LR 20 UNIT/1,000 ML BAG IV SCH ×2 (04:00→10:45)
[2018-12-24] MEDS: Lactated Ringers-OB Dept 1,000 ML PRIMARY IV SCH (04:14)
[2018-12-24] MEDS ORDERED: Fent/Bupiv 2mcg/0.0625% Epid 250 ML ONE (06:57)
[2018-12-24] MEDS ORDERED: fentaNYL Inj 100 MCG/2 ML VIAL ONE (06:57)
--- NOTE | 2018-12-24 07:15 | OB.PROGRES ---
Interval History: The patient states that she was able to rest overnight some. The patient is still or was still unsure about what she wanted to do. The patient states that she is just not sure of which is the correct answer a or a trial of labor. The baby is moving. Objective - Cervical Exam Cervical Exam: 50/-3 ballotable. The patient's cervix does stretch to 6 or perhaps 7 cm but her cervix is essentially 4 cm. I can palpate the membranes. Heart Rate Interpretation Category: Category I - Labs CBC and BMP: 12/23/18 19:15 - Vital Signs Last Taken Vital Signs: Vital Signs - Last Taken Temperature 98.9 F 12/24/18 04:34 Pulse Rate 77 12/24/18 04:34 Respiratory Rate 20 12/24/18 04:34 Blood Pressure 107/67 12/23/18 23:00 Pulse Ox 99 12/24/18 04:34 Assessment and Plan - Assessment / Plan Additional Assessment/Plan Details: Assessment: IUP 39-3/7 weeks with history of 2 vaginal deliveries but cervical lacerations with each period her first baby was 8 lbs. 10 oz. and had more of a significant cervical laceration. The patient had see me yesterday and had decided that she wanted a section with her history of cervical lacerations and she is not sure how big this baby as compared to her first. Estimated weight couple days ago was 8 pounds. However, the patient was sent to labor and delivery for questionable decreased movement and the patient was found to be zach. There was a question of the patient's cervix was 6 cm and the patient was observed overnight. I did not examine the patient last night because I wanted the patient to receive IV penicillin for GBS prophylaxis without the possibility of accidental AROM. Or SROM after a couple different cervical checks. However, in checking the patient this morning her cervical exam is essentially the same as it was 3 days ago when I checked her. The patient has received 3 doses of IV penicillin for GBS prophylaxis. With the patient desiring to be observed overnight to determine whether or not her cervix would continue to dilate, this morning the patient was not sure how to proceed. We discussed an option of a primary low transverse section secondary to history of cervical lacerations. I did offer the patient Pitocin at 0445 hrs. this morning but the patient declined. She stated that she did not want Pitocin. The patient was offered an epidural earlier and then Pitocin but the patient declined. The patient stated that she would like to have this baby naturally if she was going to have a vaginal delivery. The patient did have epidurals with her 2 previous vaginal deliveries. The patient stated that she would like AROM but with the head being ballotable I thought it best to give the patient some Pitocin initially to try to get the baby's head more engaged. We did discuss the risk of cord prolapse although a low risk. The nurse and I discussed the case with her and her significant other several times but the patient was not able to make up her mind. We left the patient's room to allow the patient and her significant other to dis cuss the plan. The patient decided that she would like an epidural and then hopefully she will approve Pitocin augmentation of her contractions and then AROM will occur. I did explain to the patient that I could not guarantee that she would have a vaginal delivery and I could not guarantee that she would not have a cervical laceration to include a significant cervical laceration even necessitating a hysterectomy if hemorrhage were to occur. The patient stated that she expressed understanding and currently does not desire a section unless there are indicated reasons.
[2018-12-24] MEDS ORDERED: LIDOCAINE W/ SODIUM BICARB 0.5 ML SYR ONE (07:25)
[2018-12-24] MEDS ORDERED: LIDOCAINE MPF 2% - 5 ML (20 MG/1 ML) ONE ×2 (07:38→09:32)
[2018-12-24] MEDS ORDERED: Lactated Ringers-OB Dept 1,000 ML ONE (07:48)
[2018-12-24] MEDS ORDERED: fentaNYL 2 MCG/BUPIVACAINE 0.0625%/NS 0.9% 250 ML BAG EPIDURAL ONE (08:30)
--- NOTE | 2018-12-24 08:30 | CRNA.PROCE ---
Central Neuraxis Block [facility] - - Safety Measures: Site Verified - - Type of Block: Epidural Reason for Block: Analgesia Moniters Used During Block: SPO2, NIBP Sedation Used - Enter Amount Used in Comment Field: Fentanyl (mcg): Yes (25 mcg) Skin Prep Used: ChloroPrep (Twice) Draped: Yes Skin Infiltration - Enter Amount Used in Comment Field: 1% Xylocaine (mL): Yes (1.0) Introducer User: 18 Gauge iROKO [place] Spinal Needle Used: 18 Hustead 80 mm (ROBBIE technique with saline @ L3-4) Local Anesthetic - Enter Amount Used in Comment Field: 5.0 % Xylocaine with Dextrose (ml): Yes (4 ml as test dose) Number of Centimeters Catheter Threaded: 4 Bioclusive Dressing Applied: Yes (skin prep under all adhesive) - - Additional Details: Dosed with 4 ml 1.5% lido as test dose. Dosed with 5 ml of 2% lido @743 via epidural. Pt reports warm buttocks. She reports " heavy " knees." Denies warm toes. Started epidural infusion at 755. Supplemented epidural infusion with 5 ml of 2% lidocaine via epidural at 933. Wanting additional analgesia. Complete. Wants to push. 100 mcg of Fentanyl IV @ 1006. Baby delivered @ 1012. Placenta @ 1016. Anesthesia Time - Other Weight: 74.389 kg Height: 5 ft Body Mass Index (BMI): 32.0
--- NOTE | 2018-12-24 08:32 | CRNA.PROGR ---
Anesthesia Time - Procedure/Recovery Time Start Date: 12/24/18 End Date: 12/24/18 Anesthesia : Time In: 07:20 Anesthesia : Time Out: 10:35 Anesthesia : Total Time: 195 - Total Anesthesia Time Total Anesthesia Time (minutes): 195 - Other Weight: 74.389 kg Height: 5 ft Body Mass Index (BMI): 32.0 Physical Status: P2 Anesthesia Type: Epidural
--- NOTE | 2018-12-24 08:54 | OB.PROGRES ---
Interval History: The patient had her epidural placed. The patient gave permission for Pitocin augmentation. Objective - Cervical Exam Cervical Exam: 4-5/50/-3. AROM with clear fluid [place]: Every 2-5 minutes Heart Rate Interpretation Category: Category I - Labs CBC and BMP: 12/23/18 19:15 - Vital Signs Last Taken Vital Signs: Vital Signs - Last Taken Temperature 98.9 F 12/24/18 04:34 Pulse Rate 77 12/24/18 04:34 Respiratory Rate 20 12/24/18 04:34 Blood Pressure 107/67 12/23/18 23:00 Pulse Ox 99 12/24/18 04:34 Assessment and Plan - Assessment / Plan Additional Assessment/Plan Details: Assessment: IUP 39-3/7 weeks with latent labor The patient had an epidural placed and allowed Pitocin augmentation The patient allowed AROM and there was clear fluid with AROM Plan: Continue Pitocin at 2 milliunits currently. Adjust as necessary depending upon toco. Continue to follow patient closely.
[2018-12-24] MEDS ORDERED: WATER STERILE FOR ONE (10:00)
--- NOTE | 2018-12-24 10:39 | OB.DEL.SUM ---
Delivery Note Delivery Summary: Delivery note: I was called because the patient was complete and +2 station. The patient was draped. The baby's head was delivered atraumatically with the patient pushing. Nuchal cord 1 reduced on perineum without a problem. The anterior shoulder and arm delivered and then the posterior shoulder and then the baby. The mouth and nose were bulb suctioned. The baby had a lusty cry. Delayed cord clamping was allowed for for about 45 seconds. The cord was clamped and cut. The baby was brought to the mother's chest on a towel. A section of cord was obtained for cord gases. Then cord blood was obtained. The placenta was then delivered in the usual fashion. The placenta was examined and appeared intact. The patient's perineum appeared intact. A rectal exam was completed at the end of the procedure and there were no buttonhole fistula is noted. The patient had minimal bleeding. I did attempt to visualize the patient's cervix but could not visualize it easily secondary to patient discomfort. Again, there was good hemostasis. The procedure was completed. Lap counts were correct at 20. Findings were a male infant with Apgars of 7 and 9. Weight was 8 lbs. 10 oz. ABG showed a pH is 7.53, PCO2 of 18, HCO3 of 15, base excess -8 The mother and baby were doing well. The patient did receive 4 doses of IV penicillin for GBS prophylaxis.
[2018-12-24] MEDS ORDERED: BENZOCAINE/MENTHOL SPRAY 56 GM BOTTLE TOPICAL PRN (10:42)
[2018-12-24] MEDS ORDERED: diphenhydrAMINE 25 MG CAPSULE PO PRN (10:42)
[2018-12-24] MEDS ORDERED: GLYCERIN/WITCH HAZEL 1 BOX TOPICAL PRN (10:42)
[2018-12-24] MEDS ORDERED: LIDOCAINE HCL 2 % 10 ML JELLY URO-JECT TOPICAL PRN (10:42)
[2018-12-24] MEDS ORDERED: Ondansetron ODT Tab 4 MG TAB PO PRN (10:42)
[2018-12-24] MEDS ORDERED: CALCIUM CARBONATE 500 MG (TUMS) CHEWABLE TABLET PO PRN (10:42)
[2018-12-24] MEDS ORDERED: LANOLIN HPA 40 GM TUBE TOPICAL PRN (10:42)
[2018-12-24] MEDS ORDERED: diphenhydrAMINE 50 MG/1 ML VIAL IVP PRN (10:42)
[2018-12-24] MEDS ORDERED: ACETAMINOPHEN 325 MG TABLET PO PRN (10:42)
[2018-12-24] MEDS ORDERED: Nalbuphine Inj 20 MG/ML Ampule IVP PRN (10:42)
[2018-12-24] MEDS ORDERED: ONDANSETRON 4 MG/2 ML VIAL IVP PRN (10:42)
[2018-12-24] MEDS ORDERED: DIPH,PERTUSS,TET(ADACEL) VAC/PF 0.5 ML (Tdap) IM ONE (10:42)
[2018-12-24] MEDS ORDERED: KETOROLAC 15 MG/1 ML VIAL IVP SCH (10:45)
[2018-12-24] MEDS ORDERED: RHO(D) IMMUNE GLOBULIN 1500 UNIT(300 mcg)SYRIN IM PRN (15:25)
[2018-12-24] MEDS: DOCUSATE 100 MG CAPSULE PO SCH (21:47)
[2018-12-24] MEDS: IBUPROFEN 800 MG TABLET PO PRN (21:47)
[2018-12-25 05:24] LABS: Hematocrit [HCT] 27.3 % (37.0-47.0); Hemoglobin [HGB] 8.9 g/dL (12.0-16.0); MEAN CORPUSCULAR HEMOGLOBIN 32.4 PG (27-31); MEAN CORPUSCULAR HGB CONC 32.6 g/dL (33-37); MEAN CORPUSCULAR VOLUME 99.3 FL (81-99); MEAN PLATELET VOLUME 10.8 FL (7.4-12.2); RED BLOOD COUNT 2.75 10^6/uL (4.20-5.40)
[2018-12-25] MEDS ORDERED: MMR VACCINE 12500 UNIT/0.5 ML SUBCUT ONE (08:33)
[2018-12-25] MEDS: DOCUSATE 100 MG CAPSULE PO SCH ×2 (09:35→21:12)
[2018-12-25] MEDS: Prenatal Multivitamin Tab 1 TAB TAB PO SCH (09:35)
--- NOTE | 2018-12-25 10:23 | OB.PROGRES ---
Subjective Post Day: 1 Pain Management: IV Toradol [place] Catheter: No Diet: Regular Feeding Method: / Bottle Ambulating: Yes Concerns / Additional Information: The patient states that she is doing well. She went downstairs to get something to drink and eat. Tolerating regular diet. Breast and bottlefeeding. She believes the baby is doing well. She does recall that I had said that she should stay until day #2 because last delivery the baby became sick on day #1 with group B strep sepsis. Objective - General General Appearance: POSITIVE: No Acute Distress, Cooperative - Cardiovacular Cardiovascular Exam: POSITIVE: RRR Edema: +1 Pedal Edema Extremities: Negative Sherie's - Bilaterally - Respiratory Respiratory Exam: POSITIVE: Clear to Auscultation - Bilaterally - Abdomen Bowel Sounds: Present Other Abdominal Exam Details: Abdomen soft and nontender without guarding or larisa ound. - Fundus/Lochia/Perineum Uterus Consistency: Firm Uterus Position: POSITIVE: At Umbilicus Assesstment / Plan Assessment / Plan: Assessment: day #1 status post spontaneous vaginal delivery after augmentation of contractions with Pitocin after the patient received an epidural. Patient has mild to moderate anemia with an H&H of 8.9 and 27 with her initial H&H of 10.9 and 32. Patient's is not bleeding significantly. Patient is asymptomatic. Patient has been anemic during her . The patient is doing well. Plan: Continue to observe patient. The plan is to discharge the patient tomorrow's that we can continue to observe the baby in the hospital since with her last delivery, the baby developed group B strep sepsis on day #1. With this augmentation of labor, the patient did receive GBS prophylaxis with IV penicillin with 4 doses received by the time the patient delivered. The patient expressed understanding with the plan. I will speak with the physician caring for the baby to discuss my plan.
[2018-12-25] MEDS: IBUPROFEN 800 MG TABLET PO PRN (21:12)
[2018-12-25 21:13] VITALS: TEMP 98.2
[2018-12-26 03:54] VITALS: RESP 16
[2018-12-26 03:55] VITALS: BP 110/64; O2SAT 99
[2018-12-26] MEDS: DOCUSATE 100 MG CAPSULE PO SCH (08:10)
[2018-12-26] MEDS: Prenatal Multivitamin Tab 1 TAB TAB PO SCH (08:10)
[2018-12-26] MEDS: IBUPROFEN 800 MG TABLET PO PRN (08:10)
--- NOTE | 2018-12-26 09:03 | OB.PROGRES ---
Subjective Post Day: 2 [place] Catheter: No Flatus: Yes Lochia Color: Serosa/Brown Scant < 10 ml Diet: Regular Feeding Method: / Bottle Ambulating: Yes Concerns / Additional Information: The patient states that she feels well. No lightheadedness. Her baby is doing well. The patient would like to go home. Objective - General General Appearance: POSITIVE: No Acute Distress, Cooperative - Cardiovacular Cardiovascular Exam: POSITIVE: RRR Edema: +1 Pedal Edema Extremities: Negative Sherie's - Bilaterally - Respiratory Respiratory Exam: POSITIVE: Clear to Auscultation - Bilaterally - Abdomen Bowel Sounds: Present Assesstment / Plan Assessment / Plan: Assessment: day #2 status post spontaneous vaginal delivery with augmentation of contractions with Pitocin after epidural was placed. The patient has mild to moderate anemia with an H&H of 8.9 and 27. Patient is asymptomatic. Vital signs are normal. The patient has been afebrile. The patient desires to go home Plan: Discharge home today. Usual precautions depression symptoms and signs discussed with the patient by myself and by the nurse Contraception discussed with the patient and the patient is not sure which option she would like to use. No vaginal intercourse for 6 weeks to allow for healing. Medications at discharge: Ibuprofen or Motrin 800 mg 1 tablet by mouth 3 times a day with food or milk for 5 days then 3 times a day as needed Ferrous sulfate 325 mg 1 tablet by mouth twice a day for 1 month Colace 100 mg capsule 1 capsule by mouth daily to twice a day when necessary constipation The patient should take a multivitamin of some sort daily. The patient should follow-up with me in about 6 weeks for a appointment. Contraception will be discussed again. If the patient decides what contraception she would like prior to the 6 week appointment, the patient may call my office to further discuss the contraception method she would like to use. Usual precautions. The patient should go to the emergency room for fever, increasing abdominal pain, abnormal vaginal discharge or foul smelling vaginal discharge, or if one leg is larger than the other with the possibility of a blood clot. The patient does have swelling on both lower extremities and this can be common. The patient is urged to drink at least 8 glasses of water per day and eat a well-balanced diet.
--- NOTE | 2018-12-26 09:06 | DCSUMMARY ---
Hospitalization Summary Admit Date: 12/23/18 Discharge Date: 12/26/18 Primary Diagnosis:: IUP 39+ weeks, history of baby with group B strep sepsis Secondary Diagnosis:: History of cervical laceration with first and second vaginal delivery with the first being more extensive than the second. Primary Surgery and Date: 12/24/2018. GBS prophylaxis with IV penicillin 4 doses prior to delivery. Epidural. Pitocin augmentation. Spontaneous vaginal delivery with nuchal cord 1 reduced on the perineum Delivery Type: Vaginal Hospital Course: Assessment: day #2 status post spontaneous vaginal delivery with augmentation of contractions with Pitocin after epidural was placed. The patient has mild to moderate anemia with an H&H of 8.9 and 27. Patient is asymptomatic. Vital signs are normal. The patient has been afebrile. The patient desires to go home Plan: Discharge home today. Usual precautions depression symptoms and signs discussed with the patient by myself and by the nurse Contraception discussed with the patient and the patient is not sure which option she would like to use. No vaginal intercourse for 6 weeks to allow for healing. Medications at discharge: Ibuprofen or Motrin 800 mg 1 tablet by mouth 3 times a day with food or milk for 5 days then 3 times a day as needed Ferrous sulfate 325 mg 1 tablet by mouth twice a day for 1 month Colace 100 mg capsule 1 capsule by mouth daily to twice a day when necessary constipation The patient should take a multivitamin of some sort daily. The patient should follow-up with me in about 6 weeks for a appointment. Contraception will be discussed again. If the patient decides what contraception she would like prior to the 6 week appointment, the patient may call my office to further discuss the contraception method she would like to use. Usual precautions. The patient should go to the emergency room for fever, increasing abdominal pain, abnormal vaginal discharge or foul smelling vaginal discharge, or if one leg is larger than the other with the possibility of a blood clot. The patient does have swelling on both lower extremities and this can be common. The patient is urged to drink at least 8 glasses of water per day and eat a well-balanced diet. / Postop Complications: Please see above Complications: The baby was kept for 2 days because of the patient's baby with her second delivery acquired group B strep sepsis on day #1. GBS prophylaxis was used prior to delivery with 4 doses of IV penicillin administered. This baby did very well with no signs or symptoms of group B strep sepsis Exam - Vitals Vital Signs: Vital Signs Temperature 98.2 F Temperature Source Oral Pulse Rate [Apical] 72 Pulse Rate [Pulse Oximeter] 78 Pulse Rate 70 Respiratory Rate 16 Blood Pressure [Right Arm] 110/64 Blood Pressure 114/93 Pulse Ox 99 Oxygen Delivery Method Room Air Height 5 ft Weight 164 lb
== END 2018-12-26 11:18 | disposition home or self-care (01) | DRG 807 ==
LOC: OBOP 16:39 → OBIP 19:01
PROVIDERS: ADMIT Obstetrics & Gynecology; ATTEND Obstetrics & Gynecology